=== PATIENT | male | born 1960 | race Caucasian/White ===

== ENCOUNTER → 2016-10-21 | Outpatient (CLI) | payer BC ==
--- NOTE | 2016-10-21 17:38 | PCVCIMAG ---
EXAM: VENOUS DUPLEX RIGHT UPPER EXTREMITY INDICATION: Arm pain and swelling. Recent PICC line. FINDINGS: Right arm: The internal jugular vein and subclavian veins are patent. Please note the images are incorrectly labeled regarding the brachial and basilic veins. The brachial vein is patent throughout. There is occlusive thrombus noted in the basilic vein from the level of the elbow to the level of the shoulder. There is question of a small amount of nonocclusive thrombus in the lateral aspect of the right axillary vein. There is occlusive thrombus in the cephalic vein at a mid humeral level. The upper portion of the cephalic vein is patent. IMPRESSION: Occlusive thrombus noted in the right basilic vein as reviewed above with question of nonocclusive thrombus in the lateral aspect of the right axillary vein. Results were reviewed with Dr. Boyce at the time of the study. LOC:[id number]
== END | disposition home or self-care (01) ==
LOC: PCVCIMAG 16:33
PROVIDERS: ATTEND Internal Medicine Cardiovascular Disease
DX: I82.621 Acute embolism and thrombosis of deep veins of right upper extremity (principal)
CPT/HCPCS: 93971

== ENCOUNTER → 2016-10-30 | Outpatient (CLI) | payer BC ==
[~2016-10-30] MED LIST: SULFUR HEXAFLUORIDE MICROSPHR 25 MG VIAL. IVP ONE
--- NOTE | 2016-10-30 18:42 | PCVCIMAG ---
APPROVED REPORT Study performed: 10/30/2016 14:31:23 EXAM: Comprehensive 2D, Doppler, and color-flow Echocardiogram Status: routine Other Information Study Quality: Fair Technically limited study due to body habitus. Risk Factors: Cardiac Risk Factors: HTN Indications Assess Ejection Fraction Cardiomyopathy DVT 2D Dimensions LVEF(%): 16.65 (>50%) IVSd: 7.97 (7-11mm) LVDd: 79.42 mm PWd: 9.89 (7-11mm) LVDs: 73.21 (25-40mm) Left Atrium: 55.40 (27-40mm) Aortic Root: 32.88 mm LV Single Plane 4CH: 23.63 % LV Single Plane 2CH: 19.33 %Ramirze's LVEF: 21.48 % Biplane EF: 22.2 % Volumes Left Atrial Volume (Systole) Single Plane 4CH: 169.36 mLSingle Plane 2CH: 154.90 mL LA ESV Index: 72.00 mL/m2 Aortic Valve AoV Peak Ced.: 1.20 m/s AO Peak Gr.: 5.77 mmHgLVOT Max P.56 mmHg LVOT Max V: 0.62 m/s Pulmonary Valve PV Peak Ced.: 0.82 m/sPV Peak Gr.: 2.78 mmHg Tricuspid Valve TR Peak Ced.: 3.32 m/s TR Peak Gr.: 44.06 mmHg Left Ventricle Left ventricle is severely dilated. There is normal LV segmental wall motion. There is normal left ventricular wall thickness. Left ventricular ejection fraction is severely decreased. LVEF is 20%. This study is not technically sufficient to allow evaluation of the LV diastolic function. Right Ventricle The right ventricle is normal size. The right ventricular systolic function is normal. Atria Left atrium is severely dilated. The right atrium size is normal. Aortic Valve The aortic valve is normal in structure. No aortic regurgitation is present. There is no aortic valvular stenosis. Mitral Valve The mitral valve is normal in structure. Severe mitral regurgitation. No evidence of mitral valve stenosis. Tricuspid Valve The tricuspid valve is normal in structure. Moderate tricuspid regurgitation with PAP of 55 mmHg. Pulmonic Valve The pulmonary valve is normal in structure. There is no pulmonic valvular regurgitation. Great Vessels The aortic root is normal in size. IVC is normal in size and collapses with >50% inspiration Pericardium There is no pericardial effusion. <Conclusion> Left ventricle is severely dilated. There is normal left ventricular wall thickness. Left ventricular ejection fraction is severely decreased. LVEF is 20%. This study is not technically sufficient to allow evaluation of the LV diastolic function. The right ventricle is normal size. Left atrium is severely dilated. The right atrium size is normal. The aortic valve is normal in structure. Severe mitral regurgitation. Moderate tricuspid regurgitation with PAP of 55 mmHg. There is no pericardial effusion. IVC is normal in size and collapses with >50% inspiration
== END | disposition home or self-care (01) ==
LOC: PCVCIMAG 14:18
PROVIDERS: ATTEND Internal Medicine Cardiovascular Disease
DX: I08.1 Rheumatic disorders of both mitral and tricuspid valves (principal); I11.0 Hypertensive heart disease with heart failure; I50.23 Acute on chronic systolic (congestive) heart failure; E78.5 Hyperlipidemia, unspecified; I82.621 Acute embolism and thrombosis of deep veins of right upper extremity; I42.8 Other cardiomyopathies; Z79.82 Long term (current) use of aspirin; Z79.899 Other long term (current) drug therapy
CPT/HCPCS: 80061; 93306; G0463; Q9950

== ENCOUNTER → 2016-12-16 | Outpatient (CLI) | payer BC ==
--- NOTE | 2016-12-17 10:23 | PCVCIMAG ---
EXAM: VENOUS DUPLEX RIGHT UPPER EXTREMITY INDICATION: Right basilic vein thrombus. FINDINGS: Right arm: No thrombus in the basilic, cephalic, brachial, axillary, or subclavian veins. These veins show phasic flow. Again noted is occlusive thrombus in the basilic vein from the level of the elbow to the level of the upper arm. The cephalic vein is diminutive in size and not well seen. IMPRESSION: No evidence of deep venous thrombosis in right upper extremity as detailed above. Occlusive thrombus in the basilic vein from the upper arm to the elbow level similar to previous study dated October 21, 2016. LOC:[id number]
--- NOTE | 2016-12-17 14:33 | PCVCIMAG ---
APPROVED REPORT Study performed: 12/16/2016 16:09:18 EXAM: Comprehensive 2D, Doppler, and color-flow Echocardiogram Patient Location: Echo lab Status: routine BSA: 2.15 HR: 96 bpmBP: 140/94 mmHg Rhythm: LBBB Other Information Study Quality: Adequate Indications Dyspnea Cardiomyopathy Severe Cardiomyopathy, Mitral regurgitation 2D Dimensions LVEF(%): 15.36 (>50%) IVSd: 9.52 (7-11mm) LVDd: 80.21 mm PWd: 9.89 (7-11mm) LVDs: 74.45 (25-40mm) Left Atrium: 53.46 (27-40mm) Aortic Root: 36.67 mm LV Single Plane 4CH: 20.94 % LV Single Plane 2CH: 20.96 %Ramirez's LVEF: 20.95 % Biplane EF: 22.6 % Volumes Left Atrial Volume (Systole) Single Plane 4CH: 119.04 mLSingle Plane 2CH: 137.08 mL LA ESV Index: 67.00 mL/m2 Left Ventricle Left ventricle is moderately dilated. There is normal left ventricular wall thickness. Left ventricular ejection fraction is severely decreased globally. LVEF is 15-20%. Right Ventricle The right ventricle is normal size. Atria Left atrium is moderate-severely dilated. Right atrium is moderately dilated. Aortic Valve The aortic valve is normal in structure. No aortic regurgitation is present. There is no aortic valvular stenosis. Mitral Valve Severe mitral regurgitation. Tricuspid Valve The tricuspid valve is normal in structure. There is no tricuspid valve regurgitation noted. Great Vessels The aortic root is normal in size. Pericardium There is no pericardial effusion. There is no pleural effusion. <Conclusion> Left ventricular ejection fraction is severely decreased globally. LVEF is 15-20%. The right ventricle is normal size. Left atrium is moderate-severely dilated. Right atrium is moderately dilated. The aortic valve is normal in structure. Severe mitral regurgitation. There is no tricuspid valve regurgitation noted. There is no pericardial effusion.
== END | disposition home or self-care (01) ==
LOC: PCVCIMAG 15:43
PROVIDERS: ATTEND Internal Medicine Cardiovascular Disease
DX: I82.621 Acute embolism and thrombosis of deep veins of right upper extremity (principal); I44.7 Left bundle-branch block, unspecified; I10 Essential (primary) hypertension; I34.0 Nonrheumatic mitral (valve) insufficiency; Z87.01 Personal history of pneumonia (recurrent); Z79.899 Other long term (current) drug therapy; Z79.82 Long term (current) use of aspirin; I49.3 Ventricular premature depolarization
CPT/HCPCS: 93308; 93971; G0463

== ENCOUNTER → 2017-05-08 | Outpatient (CLI) | payer BC | END | disposition home or self-care (01) | LOC: PCVCIMAG 09:04 | DX: I08.1 Rheumatic disorders of both mitral and tricuspid valves (principal); I42.8 Other cardiomyopathies; I12.0 Hypertensive chronic kidney disease with stage 5 chronic kidney disease or end stage renal disease; H91.93 Unspecified hearing loss, bilateral; N18.2 Chronic kidney disease, stage 2 (mild); N28.9 Disorder of kidney and ureter, unspecified; I44.7 Left bundle-branch block, unspecified; E78.00 Pure hypercholesterolemia, unspecified; R94.31 Abnormal electrocardiogram [ECG] [EKG]; Z86.718 Personal history of other venous thrombosis and embolism; Z79.899 Other long term (current) drug therapy | CPT/HCPCS: 80061; 93005; 93284; 93306; G0463 ==

== ENCOUNTER → 2019-01-14 | Outpatient (CLI) | payer BC ==
--- NOTE | 2019-01-14 16:51 | PCVCIMAG ---
APPROVED REPORT Study performed: 01/14/2019 14:41:38 EXAM: Comprehensive 2D, Doppler, and color-flow Echocardiogram Patient Location: Echo lab Room #: 2Status: routine BSA: 2.34 HR: 68 bpmBP: 166/104 mmHg Rhythm: Pacemaker, LBBB Other Information Study Quality: Fair Risk Factors: Cardiac Risk Factors: HTN Indications Abnormal ECG Atrial Fibrillation Pacemaker Cardiomyopathy NICM, LBBB, DEfibrilator 2D Dimensions IVSd: 6.18 (7-11mm)LVOT Diam: 24.66 (18-24mm) LVDd: 80.28 mm PWd: 7.29 (7-11mm)Ascending Ao: 33.80 (22-36mm) LVDs: 73.64 (25-40mm) Left Atrium: 51.94 (27-40mm) Aortic Root: 28.64 mm LV Single Plane 4CH: 17.97 % LV Single Plane 2CH: 29.82 % Biplane EF: 24.8 % Volumes Left Atrial Volume (Systole) Single Plane 4CH: 158.24 mLSingle Plane 2CH: 141.80 mL Biplane LA Volume: 160.00 mLLA ESV Index: 68.00 mL/m2 Aortic Valve AoV Peak Ced.: 1.37 m/s AO Peak Gr.: 7.51 mmHgLVOT Max P.11 mmHg LVOT Max V: 0.53 m/s SHANTAL Vmax: 1.84 cm2 Mitral Valve E/A Ratio: 1.6 MV Decel. Time: 159.63 ms MV E Max Ced.: 1.08 m/s MV A Ced.: 0.67 m/s IVRT: 138.41 ms TDI E/Lateral E': 18.00E/Medial E': 15.43 Medial E' Ced.: 0.07 m/s Lateral E' Ced.: 0.06 m/s Pulmonary Valve PV Peak Ced.: 0.88 m/sPV Peak Gr.: 3.12 mmHg Pulmonary Vein P Vein S: 0.54 m/sP Vein A: 0.29 m/s P Vein D: 0.58 m/sP Vein A Dur.: 86.5 msec P Vein S/D Ratio: 0.93 Tricuspid Valve TR Peak Ced.: 2.81 m/s TR Peak Gr.: 31.65 mmHg TV Vmax: 0.57 m/sPA Pressure: 40.00 mmHg Left Ventricle Left ventricle is severely dilated. There is normal LV segmental wall motion. There is normal left ventricular wall thickness. Left ventricular ejection fraction is severely decreased.globally LVEF is 20-25%. Findings suggest the left atrial pressure is elevated. Right Ventricle The right ventricle is normal size. The right ventricular systolic function is normal. Atria Left atrium is severely dilated. Right atrium is moderately dilated. Pacemaker lead is present in the right atrium. Aortic Valve Aortic valve is trileaflet. The aortic valve is normal in structure. No aortic regurgitation is present. There is no aortic valvular stenosis. Mitral Valve The mitral valve is normal in structure. Moderate mitral regurgitation. No evidence of mitral valve stenosis. Tricuspid Valve The tricuspid valve is normal in structure. Mild tricuspid regurgitation with a PA pressure of 40 mmHg. Pulmonic Valve The pulmonary valve is normal in structure. There is no pulmonic valvular regurgitation. Great Vessels The aortic root is normal in size. The ascending aorta is normal in size. IVC is not well visualized. Pericardium There is no pericardial effusion. There is no pleural effusion. <Conclusion> Left ventricle is severely dilated. Left ventricular ejection fraction is severely decreased.globally LVEF is 20-25%. Findings suggest the left atrial pressure is elevated. The right ventricle is normal size. Left atrium is severely dilated. Right atrium is moderately dilated. Pacemaker lead is present in the right atrium. Moderate mitral regurgitation. Mild tricuspid regurgitation with a PA pressure of 40 mmHg. The aortic root is normal in size. There is no pericardial effusion. There is no pleural effusion.
== END | disposition home or self-care (01) ==
LOC: PCVCIMAG 14:45
PROVIDERS: ATTEND Internal Medicine Cardiovascular Disease
DX: I08.1 Rheumatic disorders of both mitral and tricuspid valves (principal); I11.0 Hypertensive heart disease with heart failure; I50.9 Heart failure, unspecified
CPT/HCPCS: 93306